=== PATIENT | female | born 1990 | race Two or more races ===

== ENCOUNTER → 2017-06-18 | Emergency (ER) | payer OTHER ==
[~2017-06-18] VITALS: Ht 157.5 cm; Wt 48.1 kg
== END | disposition home or self-care (01) ==
LOC: ER 05:07
DX: Z34.01 Encounter for supervision of normal first pregnancy, first trimester (principal); O34.81 Maternal care for other abnormalities of pelvic organs, first trimester; N83.292 Other ovarian cyst, left side; N83.291 Other ovarian cyst, right side